=== PATIENT | male | born 1970 | race Caucasian/White ===

== ENCOUNTER 2017-02-14 19:30 | Emergency (ER) | payer OTHER ==
[~2017-02-14] VITALS: Ht 177.8 cm; Wt 81.6 kg
[2017-02-14] MEDS ORDERED: OMEPRAZOLE20 M3 ORAL (19:42)
[2017-02-14 19:45] VITALS: BP 142/87
[2017-02-14] MEDS ORDERED: Tetanus/Diptheria/Pertussis Vaccine 0.5ml Syr IM ONE (20:00)
[2017-02-14] MEDS ORDERED: Lidocaine 1% MPF 10mg/ml 5ml INJ ONE (20:00)
[2017-02-14] MEDS ORDERED: Bacitracin Oint UD TOPIC ONE (20:00)
[2017-02-14 20:15] VITALS: BP 142/87
--- NOTE | 2017-02-14 21:58 | Emergency Room Report ---
History of Present Illness General Chief Complaint: Laceration Source: Patient Present Illness HPI The patient is a 46-year-old male presenting for left index finger laceration which occurred today. He states he was cutting in the kitchen and knife slipped. Pain is a 5/10 dull ache. Worse with touch. Does not radiate. he denies numbness. Last tetanus shot unknown. He denies any other symptoms Allergies: Coded Allergies: No Known Allergies (Unverified , 02/14/17) Patient History Past Medical History: see triage record Pertinent Family History: none Reviewed Nursing Documentation: PMH: Agreed, PSxH: Agreed Nursing Documentation-PMH Hx Gastrointestinal Problems: Yes - HEARTBURN Review of Systems All Other Systems: negative except mentioned in HPI Physical Exam Vital Signs Date Time Temp Pulse Resp B/P (MAP) Pulse Ox O2 Delivery O2 Flow Rate FiO2 02/14/17 19:36 97.5 91 16 142/87 97 Room Air Sp02 EP Interpretation: reviewed, normal General Appearance: no apparent distress, alert, GCS 15, non-toxic Head: normocephalic, atraumatic Eyes: bilateral eye normal inspection, bilateral eye PERRL Musculoskeletal: back normal, gait/station normal, normal range of motion, tender - TTP over the distal L index finger Neurologic: alert, oriented x3, responsive, motor strength/tone normal, sensory intact, speech normal Psychiatric: judgement/insight normal, memory normal, mood/affect normal, no suicidal/homicidal ideation Skin: laceration - 2cm linear laceration to the distal L index finger Lymphatic: no adenopathy Medical Decision Making PA Attestation Dr. Swan is my supervising physician. Patient management was discussed with my supervising physician Diagnostic Impression: Primary Impression: Finger laceration Qualified Codes: S61.211A - Laceration without foreign body of left index finger without damage to nail, initial encounter ER Course The patient is a 46-year-old male presenting for left index finger laceration Ddx considered include but not limited to fracture, tendon/ligament injury, avulsion, nerve damage PE: NAD L index finger has 2 cm linear laceration to distal palmar surface. Full AROM intact. SILT. Minimal bleeding Tdap ordered Pt was told this will need laceration repair and cleaning. He agrees Upon re-visit, the patient has eloped. it was said he would rather go to an urgent care which is in-network with his insurance. Last Vital Signs Date Time Temp Pulse Resp B/P (MAP) Pulse Ox O2 Delivery O2 Flow Rate FiO2 02/14/17 19:45 97.5 91 16 142/87 97 Room Air Status: improved Disposition: ELOPED Condition: Stable BIRD NGUYEN Feb 14, 2017 21:58
== END 2017-02-14 20:15 | disposition left against medical advice (07) ==
LOC: EMR 20:15
DX: S61.211A Laceration without foreign body of left index finger without damage to nail, initial encounter (principal); W26.0XXA Contact with knife, initial encounter; Y92.010 Kitchen of single-family (private) house as the place of occurrence of the external cause; Z23 Encounter for immunization
CPT/HCPCS: 90471; 90715; 99283